=== PATIENT | female | born 1980 | race Caucasian/White ===

== ENCOUNTER 2017-08-05 17:16 | Emergency (ER) | payer OTHER ==
[2017-08-05] MEDS ORDERED: SODIUM CHLORIDE 1,000 ML IV STA (17:29)
[2017-08-05] MEDS ORDERED: ACETAMINOPHEN 325 MG TABLET (FP) PO ONE (17:29)
[2017-08-05] MEDS ORDERED: ACETAMINOPHEN 325 MG TABLET (FP) ONE (17:32)
[2017-08-05 17:34] VITALS: BP 139/95; PULSE 88; TEMP 98.7; BMI 28.1
--- NOTE | 2017-08-05 17:36 | PDOC ---
History of Present Illness - General History Source: Patient Exam Limitations: No Limitations <Vinicius Saucedo - Last Filed: 08/05/17 18:44> - History of Present Illness Initial Comments: 08/05/17 17:39 The patient is a 36 year old female, with no significant past medical history, who presents to the emergency department with right flank pain, dysuria, suprapubic pain, and chills today. The patient states her last period was 5 weeks ago and reports taking an at home test 2 days ago which was negative. She denies chest pain, shortness of breath, headache and dizziness. She denies fever, nausea, vomit, diarrhea and constipation. She denies frequency, urgency and hematuria. Allergies: NKDA Past surgical history: none reported Social history: Pt denies tobacco use. Admits to social alcohol consumption. PCP - Dr. Murray <Yael Sloan - Last Filed: 08/05/17 19:46> - General History Source: Patient Exam Limitations: No Limitations <Shruthi Gutierrez I - Last Filed: 08/05/17 23:02> - General Chief Complaint: Urinary Problem Stated Complaint: PAINFUL URINATION Time Seen by Provider: 08/05/17 17:20 Past History - Suicide/Smoking/Psychosocial Hx Smoking Status: No Smoking History: Never smoked Number of Cigarettes Smoked Daily: 0 Hx Alcohol Use: Yes (SOCIAL) Drug/Substance Use Hx: No Substance Use Type: None Hx Substance Use Treatment: No <Vinicius Saucedo - Last Filed: 08/05/17 18:44> <Yael Sloan - Last Filed: 08/05/17 19:46> <Shruthi Gutierrez I - Last Filed: 08/05/17 23:02> - Past Medical History Allergies/Adverse Reactions: Allergies Allergy/AdvReac Type Severity Reaction Status Date / Time No Known Allergies Allergy Verified 06/14/15 18:51 Home Medications: Ambulatory Orders Cefuroxime Axetil [Ceftin -] 250 mg PO BID #14 tablet 08/05/17 Phenazopyridine HCl [Pyridium] 100 mg PO TID #6 tablet 08/05/17 Phenazopyridine HCl [Pyridium] 200 mg PO TID PRN 08/05/17 Review of Systems - Review of Systems Able to Perform ROS?: Yes Comments:: 08/05/17 17:39 GENERAL/CONSTITUTIONAL: (+) chills. No fever. No weakness. HEAD, EYES, EARS, NOSE AND THROAT: No change in vision. No ear pain or discharge. No sore throat. CARDIOVASCULAR: No chest pain or shortness of breath. RESPIRATORY: No cough, wheezing, or hemoptysis. GASTROINTESTINAL: (+) suprapubic pain. No nausea, vomiting, diarrhea or constipation. GENITOURINARY: (+)dysuria and right flank pain. No frequency or hematuria. MUSCULOSKELETAL: No joint or muscle swelling or pain. No neck or back pain. SKIN: No rash NEUROLOGIC: No headache, vertigo, loss of consciousness, or change in strength/ sensation. ENDOCRINE: No increased thirst. No abnormal weight change. HEMATOLOGIC/LYMPHATIC: No anemia, easy bleeding, or history of blood clots. ALLERGIC/IMMUNOLOGIC: No hives or skin allergy. Is the patient limited Korean proficient: Yes <Yael Sloan - Last Filed: 08/05/17 19:46> *Physical Exam - Vital Signs Last Vital Signs Temp Pulse Resp BP Pulse Ox 98.7 F 88 15 139/95 98 08/05/17 17:17 08/05/17 17:17 08/05/17 17:17 08/05/17 17:17 08/05/17 17:17 <Vinicius Saucedo - Last Filed: 08/05/17 18:44> - Vital Signs Last Vital Signs Temp Pulse Resp BP Pulse Ox 98.7 F 88 15 139/95 98 08/05/17 17:17 08/05/17 17:17 08/05/17 17:17 08/05/17 17:17 08/05/17 17:17 - Physical Exam Comments: 08/05/17 17:40 GENERAL: Awake, alert, and fully oriented, in no acute distress HEAD: No signs of trauma EYES: PERRLA, EOMI, sclera anicteric, conjunctiva clear ENT: Auricles normal inspection, hearing grossly normal, nares patent, oropharynx clear without exudates. Moist mucosa NECK: Normal ROM, supple, no lymphadenopathy, JVD, or masses LUNGS: Breath sounds equal, clear to auscultation bilaterally. No wheezes, and no crackles HEART: Regular rate and rhythm, normal S1 and S2, no murmurs, rubs or gallops ABDOMEN: (+) suprapubic tenderness. Soft, normoactive bowel sounds. No guarding , no rebound. No masses MUSCULOSKELETAL: (+) right CVA tenderness. EXTREMITIES: Normal range of motion, no edema. No clubbing or cyanosis. No cords, erythema, or tenderness NEUROLOGICAL: Cranial nerves II-XII intact. Normal speech, normal gait. Sensation intact in upper and lower extremities. 5/5 motor strength in upper and lower extremities. No pronator drift. Finger to nose intact. Rapid alternations intact. SKIN: Warm, Dry, normal turgor, no rashes or lesions noted. <Yael Sloan - Last Filed: 08/05/17 19:46> - Vital Signs Last Vital Signs Temp Pulse Resp BP Pulse Ox 98.7 F 88 15 139/95 98 08/05/17 17:17 08/05/17 17:17 08/05/17 17:17 08/05/17 17:17 08/05/17 17:17 <Shruthi Gutierrez I - Last Filed: 08/05/17 23:02> ED Treatment Course - LABORATORY CBC & Chemistry Diagram: 08/05/17 17:40 08/05/17 17:40 <Vinicius Saucedo - Last Filed: 08/05/17 18:44> - LABORATORY CBC & Chemistry Diagram: 08/05/17 17:40 08/05/17 17:40 - RADIOLOGY Radiograph Interpretation: 08/05/17 19:46 EXAM: CT ABDOMEN AND PELVIS WITHOUT CONTRAST TECHNIQUE: Contiguous axial images acquired with reformat sagittal and coronal planes. REASON FOR EXAM: Abdominal pain right flank COMPARISON: None FINDINGS: Lower lung [place] are clear. Stomached distended with food debris. There are no gallstones identified. Liver, pancreas, spleen and adrenal glands are grossly unremarkable given the limitation of this non contrast exam. No renal stones are seen or evidence of obstructive uropathy. Abdominal aorta without AAA. There is no retroperitoneal hemorrhage The appendix is normal. Evaluation of the GI tract is limited without oral contrast. No evidence of bowel obstruction, ascites, abscess, free air or diverticulitis. Bladder and uterus grossly unremarkable. Subcutaneous soft tissue mass along the lower back at the L-5 and sacrum measures 4.2 x 8.2 x x 11 cm possibly desmoid tumor, fibromatosis, hypertrophic scar/keloid. Biopsy would confirm. Lumbar spine and bony pelvis are intact. IMPRESSION: Superificial subcutaneous soft tissue mass along the lower back as described above. No renal stones or evidence of obstructive uropathy. Appendix is normal. Ursula Watson D.O. 08/05/2017 19:42 EST <Yael Sloan - Last Filed: 08/05/17 19:46> - LABORATORY CBC & Chemistry Diagram: 08/05/17 17:40 08/05/17 17:40 - ADDITIONAL ORDERS Additional order review: Laboratory Results 08/05/17 08/05/17 17:40 17:30 Sodium 132 L Potassium 3.6 Chloride 103 Carbon Dioxide 23 Anion Gap 6 L BUN 12 D Creatinine 0.8 D Creat Clearance w eGFR > 60 Random Glucose 96 Calcium 9.6 Total Bilirubin 1.1 H D AST 26 D ALT 22 Alkaline Phosphatase 46 Total Protein 7.1 Albumin 4.6 D Urine Color Yellow Urine Appearance Clear Urine pH 5.5 D Ur Specific [place] 1.010 Urine Protein Negative Urine Glucose (UA) Negative Urine Ketones Negative Urine Blood Trace-intact H Urine Nitrite Negative Urine Bilirubin Negative Urine Urobilinogen 0.2 Urine RBC 0-2 Urine WBC 5-10 Ur Epithelial Cells 3-5 Urine Bacteria Few Urine HCG, Qual Negative 08/05/17 17:40 RBC 4.37 MCV 94.9 MCHC 33.8 RDW 12.1 MPV 8.1 Neutrophils % 67.4 D Lymphocytes % 24.3 D Monocytes % 5.2 Eosinophils % 1.5 Basophils % 1.6 - Medications Given in the ED: ED Medications Discontinued Medications Generic Name Dose Route Start Last Admin Trade Name Magdalenoq PRN Reason Stop Dose Admin Acetaminophen 650 mg 08/05/17 17:29 08/05/17 17:35 Tylenol - PO 08/05/17 17:30 650 mg ONCE ONE Administration Sodium Chloride 1,000 mls @ 1,000 mls/hr 08/05/17 17:29 08/05/17 17:40 Normal Saline - IV 08/05/17 18:28 1,000 mls/hr ASDIR STA Administration <Shruthi Gutierrez I - Last Filed: 08/05/17 23:02> Medical Decision Making - Medical Decision Making 08/05/17 17:34 A portion of this note was documented by scribe services under my direction. I have reviewed the details of the note, within reason, and agree with the documentation with the following case summary and management plan written by me. Patient treated in the ED. Nursing notes are reviewed and incorporated into the medical decision-making. Vital signs reviewed. Peripheral IV access obtained by the nurse, laboratory studies are drawn and sent, reviewed and interpreted by myself. Vital Signs Temp Pulse Resp BP Pulse Ox 98.7 F 88 15 139/95 98 08/05/17 17:17 08/05/17 17:17 08/05/17 17:17 08/05/17 17:17 08/05/17 17:17 36-year-old female with no past medical history presents to the emergency department for right flank pain and dysuria for 4 days. Patient has reported feeling chills but denies fevers. Denies sick contacts or recent travels. Denies coughing or vomiting or diarrhea. Patient was initially concerned that she may be as her last period was approximately 5 weeks ago. Patient had recently take a test 2 days ago but was negative. Denies vaginal bleeding. I suspect the patient may potentially have a kidney infection. We'll obtain labs , urinalysis and reassess. We'll obtain a urine test as well. 08/05/17 18:18 CBC, BMP 08/05/17 17:40 08/05/17 17:40 CMP Sodium 132 mmol/L (136-145) L 08/05/17 17:40 Potassium 3.6 mmol/L (3.5-5.1) 08/05/17 17:40 Chloride 103 mmol/L (98-107) 08/05/17 17:40 Carbon Dioxide 23 mmol/L (22-28) 08/05/17 17:40 Anion Gap 6 (8-16) L 08/05/17 17:40 BUN 12 mg/dl (7-18) D 08/05/17 17:40 Creatinine 0.8 mg/dl (0.6-1.3) D 08/05/17 17:40 Creat Clearance w eGFR > 60 (>60) 08/05/17 17:40 Random Glucose 96 mg/dl (74-106) 08/05/17 17:40 Calcium 9.6 mg/dl (8.4-10.2) 08/05/17 17:40 Total Bilirubin 1.1 mg/dl (0.2-1.0) H D 08/05/17 17:40 AST 26 U/L (10-42) D 08/05/17 17:40 ALT 22 U/L (10-40) 08/05/17 17:40 Alkaline Phosphatase 46 U/L (32-92) 08/05/17 17:40 Total Protein 7.1 g/dl (6.4-8.3) 08/05/17 17:40 Albumin 4.6 g/dl (3.5-5.0) D 08/05/17 17:40 Urine Test Results Urine Color Yellow 08/05/17 17:30 Urine Appearance Clear 08/05/17 17:30 Urine pH 5.5 (4.5-8) D 08/05/17 17:30 Ur Specific [place] 1.010 (1.005-1.025) 08/05/17 17:30 Urine Protein Negative (NEGATIVE) 08/05/17 17:30 Urine Glucose (UA) Negative (NEGATIVE) 08/05/17 17:30 Urine Ketones Negative (NEGATIVE) 08/05/17 17:30 Urine Blood Trace-intact (NEGATIVE) H 08/05/17 17:30 Urine Nitrite Negative (NEGATIVE) 08/05/17 17:30 Urine Bilirubin Negative (NEGATIVE) 08/05/17 17:30 Urine RBC 0-2 /hpf (0-3) 08/05/17 17:30 Urine WBC 5-10 (3-5) 08/05/17 17:30 Ur Epithelial Cells 3-5 /HPF 08/05/17 17:30 Urine Bacteria Few /hpf (NEGATIVE) 08/05/17 17:30 There is 1+ leuk esterase from the laboratory. Given the blood in the urine, will perform a spiral CT to r/o kidney stones. However, if the findings do not suggest kidney stones, will likely treat clinically as a kidney infection. 08/05/17 18:44 Case signed out to [facility] ED attending Dr. Hunter for further management and disposition. <Vinicius Saucedo - Last Filed: 08/05/17 18:44> *DC/Admit/Observation/Transfer <Vinicius Saucedo - Last Filed: 08/05/17 18:44> - Attestations Scribe Attestion: 08/05/17 17:41 Documentation prepared by Yael Sloan, acting as medical device engineer for Vinicius Saucedo MD, <Yael Sloan - Last Filed: 08/05/17 19:46> <Shruthi Gutierrez I - Last Filed: 08/05/17 23:02> Diagnosis at time of Disposition: Pyelonephritis - Discharge Dispostion Disposition: HOME Condition at time of disposition: Good - Prescriptions Prescriptions: Cefuroxime Axetil [Ceftin -] 250 mg PO BID #14 tablet Phenazopyridine HCl [Pyridium] 100 mg PO TID #6 tablet - Referrals Referrals: Suni Murray MD [Primary Care Provider] - - Patient Instructions Additional Instructions: Get your prescriptions filled at the pharmacy For the symptoms take Pyridium 1 tablet 3 times a day for 2 days this will turn her urine a bright orange so do not be upset by the color of your urine Take the antibiotic twice a day for 7 days. I am giving you a copy of your CAT scan it has an incidental finding that you need to follow-up with your primary care doctor of a soft tissue mass along her lower back area. Return to the emergency department immediately with ANY new, persistent or worsening symptoms. Continue any medications as previously prescribed by your physician. You should follow up with your primary doctor as soon as possible regarding today's emergency department visit. . Please make sure your doctor reviews the results of your emergency evaluation. Thank you for coming to the Emergency Department today for your care. It was a pleasure to see you today. Please note that your evaluation is INCOMPLETE until you follow-up with your doctor.
[2017-08-05 17:38] LABS: PH,URINE 5.5 (4.5-8); URINE APPEARANCE Clear; URINE BILIRUBIN Negative (NEGATIVE); URINE GLUCOSE (UA) Negative (NEGATIVE); URINE KETONE Negative (NEGATIVE); URINE NITRITE Negative (NEGATIVE); URINE PROTEIN Negative (NEGATIVE); URINE UROBILINOGEN 0.2 (0.2-1.0)
[2017-08-05 17:39] LABS: URINE BLOOD Trace-intact (NEGATIVE); URINE COLOR YELLOW; URINE LEUK ESTERASE 1+ (NEGATIVE)
[2017-08-05 17:57] LABS: BASOPHIL 1.6 % (0-2.0); EOSINOPHIL 1.5 % (0-4.5); MCH 32.1 pg (25.7-33.7); MCHC 33.8 g/dl (32.0-36.0); MEAN CELL VOLUME 94.9 fl (80-96); MEAN PLT VOLUME 8.1 fl (7.5-11.1); NEUTROPHILS 67.4 % (42.8-82.8); PLATELET COUNT 231 K/MM3 (134-434); RDW 12.1 % (11.6-15.6); WHITE BLOOD COUNT 8.2 K/mm3 (4.0-10.8)
[2017-08-05 18:04] LABS: URINE BACTERIA FEW /hpf (NEGATIVE); URINE RBC 0-2 /hpf (0-3)
[2017-08-05 18:06] LABS: ALBUMIN 4.6 g/dl (3.5-5.0); ALK PHOS 46 U/L (32-92); ANION GAP 6 (8-16); BILIRUBIN,TOTAL 1.1 mg/dl (0.2-1.0); CALCIUM 9.6 mg/dl (8.4-10.2); CO2 23 mmol/L (22-28); CREATININE 0.8 mg/dl (0.6-1.3); GLUCOSE,RANDOM 96 mg/dl (74-106); SGOT/AST 26 U/L (10-42); SGPT/ALT 22 U/L (10-40); TOT PROT 7.1 g/dl (6.4-8.3)
[2017-08-05] MEDS ORDERED: CEFTRIAXONE 1 GM in DEXTROSE 5%-WATER - 50 ML IVPB ONE (19:55)
--- NOTE | 2017-08-05 20:08 | PDOC ---
*Physical Exam - Vital Signs Last Vital Signs Temp Pulse Resp BP Pulse Ox 98.7 F 88 15 139/95 98 08/05/17 17:17 08/05/17 17:17 08/05/17 17:17 08/05/17 17:17 08/05/17 17:17 ED Treatment Course - LABORATORY CBC & Chemistry Diagram: 08/05/17 17:40 08/05/17 17:40 - ADDITIONAL ORDERS Additional order review: Laboratory Results 08/05/17 08/05/17 17:40 17:30 Sodium 132 L Potassium 3.6 Chloride 103 Carbon Dioxide 23 Anion Gap 6 L BUN 12 D Creatinine 0.8 D Creat Clearance w eGFR > 60 Random Glucose 96 Calcium 9.6 Total Bilirubin 1.1 H D AST 26 D ALT 22 Alkaline Phosphatase 46 Total Protein 7.1 Albumin 4.6 D Urine Color Yellow Urine Appearance Clear Urine pH 5.5 D Ur Specific [place] 1.010 Urine Protein Negative Urine Glucose (UA) Negative Urine Ketones Negative Urine Blood Trace-intact H Urine Nitrite Negative Urine Bilirubin Negative Urine Urobilinogen 0.2 Urine RBC 0-2 Urine WBC 5-10 Ur Epithelial Cells 3-5 Urine Bacteria Few Urine HCG, Qual Negative 08/05/17 17:40 RBC 4.37 MCV 94.9 MCHC 33.8 RDW 12.1 MPV 8.1 Neutrophils % 67.4 D Lymphocytes % 24.3 D Monocytes % 5.2 Eosinophils % 1.5 Basophils % 1.6 - Medications Given in the ED: ED Medications Discontinued Medications Generic Name Dose Route Start Last Admin Trade Name Freq PRN Reason Stop Dose Admin Acetaminophen 650 mg 08/05/17 17:29 08/05/17 17:35 Tylenol - PO 08/05/17 17:30 650 mg ONCE ONE Administration Sodium Chloride 1,000 mls @ 1,000 mls/hr 08/05/17 17:29 08/05/17 17:40 Normal Saline - IV 08/05/17 18:28 1,000 mls/hr ASDIR STA Administration Progress Note - Progress Note Progress Note: Initial Comments: 08/05/17 19:29 Care of this patient was transferred to [place] from Dr. Saucedo at 1900 hrs. Patient is a 36-year-old female who comes in complaining of urinary frequency dysuria and some flank pain. Patient is afebrile and has a normal CBC including normal white count and no left shift. Patient's urinalysis shows 0-2 red cells 5-10 white cells and a few bacteria. Patient has a CT pending to rule out kidney stone. CT was negative for any stone or obstructive uropathy. Patient will be treated for presumptive pyelonephritis with a dose of IV ceftriaxone and sent out with Ceftin An incidental finding on the CT was a superficial subcutaneous soft tissue mass along the lower back. Patient was given a copy of the CAT scan and told to take it to her primary care doctor to follow-up that some cutaneous or facial soft tissue mass. Patient discharged home prescriptions were sent to her pharmacy. *DC/Admit/Observation/Transfer Diagnosis at time of Disposition: Pyelonephritis - Discharge Dispostion Disposition: HOME Condition at time of disposition: Good Admit: No - Prescriptions Prescriptions: Cefuroxime Axetil [Ceftin -] 250 mg PO BID #14 tablet - Referrals Referrals: Suni Murray MD [Primary Care Provider] - - Patient Instructions Additional Instructions: Get your prescriptions filled at the pharmacy For the symptoms take Pyridium 1 tablet 3 times a day for 2 days this will turn her urine a bright orange so do not be upset by the color of your urine Take the antibiotic twice a day for 7 days. I am giving you a copy of your CAT scan it has an incidental finding that you need to follow-up with your primary care doctor of a soft tissue mass along her lower back area. Return to the emergency department immediately with ANY new, persistent or worsening symptoms. Continue any medications as previously prescribed by your physician. You should follow up with your primary doctor as soon as possible regarding today's emergency department visit. . Please make sure your doctor reviews the results of your emergency evaluation. Thank you for coming to the Emergency Department today for your care. It was a pleasure to see you today. Please note that your evaluation is INCOMPLETE until you follow-up with your doctor. - Post Discharge Activity
[2017-08-05] MEDS ORDERED: cefTRIAXone SODIUM 1 GM VIAL ONE (20:09)
[2017-08-05] MEDS ORDERED: PHENAZOPYRIDINE HCL 100 MG TABLET (FP) PO ONE (20:11)
[2017-08-05] MEDS ORDERED: PHENAZOPYRIDINE HCL 100 MG TABLET (FP) ONE (20:21)
== END 2017-08-05 20:54 | disposition home or self-care (01) ==
LOC: FER 17:16 → SUPCPDRO 17:16 → FER 20:54
PROC: 3E03329 Introduction of Other Anti-infective into Peripheral Vein, Percutaneous Approach (ICD-10-PCS; principal; 2017-08-05)
PROC: 3E0337Z Introduction of Electrolytic and Water Balance Substance into Peripheral Vein, Percutaneous Approach (ICD-10-PCS; 2017-08-05)
DX: N12 Tubulo-interstitial nephritis, not specified as acute or chronic (principal)
CPT/HCPCS: 36415; 74176; 80053; 81003; 81015; 84703; 85025; 87086; 87186; 99283-25

== ENCOUNTER 2018-06-18 14:13 | Emergency (ER) | payer OTHER ==
[2018-06-18 14:19] VITALS: BP 126/84; PULSE 81; TEMP 98.8; BMI 29.2
[2018-06-18] MEDS ORDERED: IBUPROFEN 600 MG TABLET (FP) PO ONE ×2 (14:28→14:30)
--- NOTE | 2018-06-18 14:55 | PDOC ---
History of Present Illness - General Chief Complaint: Pain Stated Complaint: RT HAND, RFA UP TO RT SHOULDER PAIN Time Seen by Provider: 06/18/18 14:28 History Source: Patient Exam Limitations: No Limitations (portuguese speaking, interpretors available in ER. ) - History of Present Illness Initial Comments: Pt, with no significant PMH, presents with R arm and hand pain. The pt states the pain started in January 2018 and is getting progressively worse. She states the pain hurts the most over the thumb and wrist of her R hand, but she feels "shooting pain" and numbness from her hand up into her shoulder. The pain is exacerbated by abducting at the right shoulder, and flexion of the R wrist. She has taken ibuprofen over the last few months for pain, with minimal relief, and has not been seen by her primary care physician. The pain is now interfering with her sleep. She denies any trauma to the joint (no falls, MVA, new exercise or lifting). She denies fevers/chills, nausea/vomiting, chest pain, SOB, urinary symptoms, diarrhea/constipation, or other joint pain. 06/18/18 15:44 Past History - Travel Traveled outside of the country in the last 30 days: No Close contact w/someone who was outside of country & ill: No - Past Medical History Allergies/Adverse Reactions: Allergies Allergy/AdvReac Type Severity Reaction Status Date / Time No Known Allergies Allergy Verified 06/18/18 14:15 Home Medications: Ambulatory Orders Methylprednisolone [Medrol Dose Be] 4 mg PO ASDIR #21 tablet 06/18/18 Cardiac Disorders: No COPD: No Diabetes: No Disorders: Yes (UTI) HTN: No Hypercholesterolemia: No - Surgical History Orthopedic Surgery: No - Suicide/Smoking/Psychosocial Hx Smoking Status: No Smoking History: Never smoked Have you smoked in the past 12 months: No Number of Cigarettes Smoked Daily: 0 Information on smoking cessation initiated: No Hx Alcohol Use: No Drug/Substance Use Hx: No Substance Use Type: None Hx Substance Use Treatment: No Review of Systems - Review of Systems Able to Perform ROS?: Yes (translation by staff) Is the patient limited Sudanese proficient: No Constitutional: Yes: Weight Stable. No: Chills, Diaphoresis, Fever, Loss of Appetite, Weakness HEENTM: No: Recent change in vision, Difficulty Swallowing Respiratory: No: Cough, Orthopnea, Shortness of Breath Cardiac (ROS): No: Chest Pain, Edema, Irregular Heart Rate, Lightheadedness, Palpitations, Syncope, Chest Tightness ABD/GI: No: Abdominal Distended, Constipated, Diarrhea, Nausea, Poor Appetite, Poor Fluid Intake, Vomiting : No: Burning, Dysuria, Frequency, Pain, Urgency Musculoskeletal: Yes: Joint Pain (R shoulder pain. Pain at wrist with flexion. Pain over R palmar thumb. ), Joint Swelling (R palmar thumb), Muscle Weakness ( difficulty gripping objects/opening jars). No: Back Pain, Neck Pain, Joint Stiffness Integumentary: No: Bruising, Erythema, Rash Neurological: Yes: Paresthesia ("shooting pain" and numbness down shoulder, posterior arm, and ulnar side of hand), Tingling, Weakness. No: Headache, Numbness, Unsteady Gait, Ataxia, Dizziness Psychiatric: No: Sleep Pattern Change, Change in Appetite Endocrine: No: Increased Urine, Change in Weight Hematologic/Lymphatic: No: Anemia, Blood Clots, Easy Bleeding All Other Systems: Reviewed and Negative *Physical Exam - Vital Signs Last Vital Signs Temp Pulse Resp BP Pulse Ox 98.8 F 81 18 126/84 100 06/18/18 14:13 06/18/18 14:13 06/18/18 14:13 06/18/18 14:13 06/18/18 14:13 - Physical Exam General Appearance: Yes: Nourished, Appropriately Dressed. No: Apparent Distress HEENT: positive: EOMI, Normal ENT Inspection, Normal Voice, Symmetrical, Pharynx Normal, Hearing Grossly Normal. negative: Scleral Icterus (R), Scleral Icterus (L) Neck: positive: Trachea midline, Normal Thyroid, Supple, Tender lateral (tender over R trapezius with spasm). negative: Tender, Rigid, Decreased range of motion, Lymphadenopathy (R), Lymphadenopathy (L), Rigidity, Tender midline Respiratory/Chest: positive: Chest Tender, Lungs Clear, Normal Breath Sounds. negative: Respiratory Distress, Accessory Muscle Use Cardiovascular: positive: Regular Rhythm, Regular Rate, S1, S2. negative: Edema , JVD, Murmur Vascular Pulses: Carotid (R): 4+, Carotid (L): 4+ (radial +4 b/l) Gastrointestinal/Abdominal: positive: Normal Bowel Sounds, Flat, Soft. negative : Tender, Organomegaly, Pulsatile Mass, Guarding, Rebound, Tenderness Lymphatic: negative: Adenopathy, Tenderness Musculoskeletal: positive: Decreased Range of Motion (tenderness with R shoulder abduction and R wrist flexion), Muscle Spasm (R trapezius). negative: Normal Inspection, CVA Tenderness, Vertebral Tenderness Extremity: positive: Normal Capillary Refill, Pelvis Stable. negative: Normal Inspection (swelling over thenar eminenince. Tenderness to palpation over lateral epicondyle of elbow. ), Normal Range of Motion, Tender, Coldness, Cyanosis, Erythema Integumentary: positive: Normal Color, Dry, Warm. negative: Rash, Ecchymosis, Bruising Neurologic: positive: career services assistant II-XII NML intact, Fully Oriented, Alert, Normal Mood/ Affect, Normal Response, Motor Strength 5/5, Sensory Deficit (decreased sensation over ulnar side of hand, forearm, and posterior arm. ). negative: Numbness ED Treatment Course - RADIOLOGY Radiology Studies Ordered: R shoulder x-ray: no acute fractures or dislocations seen (read by Dr. Webb) . 06/18/18 18:47 Medical Decision Making - Medical Decision Making Pt seen at bedside, also seen by Dr. Webb. Pt vitals stable, no acute distress. Pt provided 600 mg Ibuprofen for pain. Will send qual B-hcg for shoulder x-ray. Pt states she has pain over the radial aspect of the forearm and thenar eminence. Decreased sensation over ulnar distribution of hand and forearm. Spoke to Dr. Worrell, who states it will take some time before pt could get an appointment for MRI. Called Dr. Bateman (neurology) to ask about appointment so pt can receive outpatient MRI. Left message and awaiting call-back. 06/18/18 15:07 Pt taken for shoulder x-ray (urine test negative). Awaiting x-ray read. Pt sitting comfortably in room. 06/18/18 15:42 X-ray negative for fractures or dislocations. Pt discharged with medrol steroid pack and valium for muscle spasm. Will follow-up with orthopedics and neurology. Provided referrals and strict return precautions. Pt agreeable with plan. 06/18/18 18:49 *DC/Admit/Observation/Transfer Diagnosis at time of Disposition: Right shoulder strain Qualifiers: Encounter type: initial encounter Qualified Code(s): S46.911A - Strain of unspecified muscle, fascia and tendon at shoulder and upper arm level, right arm , initial encounter Ulnar nerve compression Qualifiers: Laterality: right Qualified Code(s): G56.21 - Lesion of ulnar nerve, right upper limb - Discharge Dispostion Disposition: HOME Condition at time of disposition: Stable - Prescriptions Prescriptions: Methylprednisolone [Medrol Dose Be] 4 mg PO ASDIR #21 tablet - Referrals Referrals: Suni Murray MD [Primary Care Provider] - Fred Bateman MD [Staff Physician] - López Holbrook MD [Staff Physician] - Derek Kathleen MD [Staff Physician] - - Patient Instructions Printed Discharge Instructions: DI for Shoulder Pain, DI for Wrist Pain Additional Instructions: You were seen in the ER today for shoulder and wrist pain. Please follow-up with a doctor in neurology (Dr. Holbrook or Dr. Bateman), Dr. Kathleen in orthopedics, and your primary care doctor (Dr. Cedillo). The steroid pack was sent to your pharmacy. Please come back to the ER if you have worsening pain in your shoulder , inability to feel or weakness in your arm or shoulder, or any other concerns. Print Language: RWANDAN - Post Discharge Activity
--- NOTE | 2018-06-18 18:55 | PDOC ---
Attending Attestation - Resident Resident Name: Disha Wilkerson - ED Attending Attestation I have performed the following: I have examined & evaluated the patient, The case was reviewed & discussed with the resident, I agree w/resident's findings & plan, Exceptions are as noted - HPI HPI: 06/18/18 18:52 37-year-old Welsh-speaking female who today complaining of right arm tingling and numbness. Patient states that her symptoms started 6 months prior to today. She describes gradual worsening of tingling and weakness initially in her hand. She does also have some pain radiating up her forearm also is complaining of intermittent shoulder crepitus and pain with movement. No history of any injury no history of neck pain or back pain no fevers chills no other current complaints no known history of carpal tunnel patient is right-hand dominant - Physicial Exam PE: 06/18/18 18:52 Patient is awake alert no distress. Head is atraumatic there is no midline cervical spine tenderness. Patient has right-sided trapezial muscle spasm and pain right shoulder is with full range of motion no deformity no effusion elbow is with full range of motion no deformity no effusion. Neurologically patient is ANO 3 cranial nerves II-12 are intact. She has 5 out of 5 upper extremity strength on flexion extension at the shoulder elbow and wrist. 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 The sensation is decreased in the ulnar nerve distribution and on the dorsal forearm. On the right. Negative Tinel's and Phalen's exam is normal. Heart is regular rate and rhythm no murmurs rubs or gallops. Lungs are clear bilaterally. 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 However due the fact the patient has some radial nerve distribution sensory changes a proximal lesion is considered such as cervical spasm or disc disease due to longevity of the patient's symptoms we'll do a trial of steroids recommend neurology and orthospine follow-up for possible outpatient MRI case discussed with Dr. Deepali Jerome who was see the patient for follow-up lesion given referrals for neurologist and Dr. Vaz orthopedic spine in addition to a Medrol Dosepak and Valium
== END 2018-06-18 16:40 | disposition home or self-care (01) ==
LOC: FER 14:13
DX: S46.911A Strain of unspecified muscle, fascia and tendon at shoulder and upper arm level, right arm, initial encounter (principal); X58.XXXA Exposure to other specified factors, initial encounter; Y93.89 Activity, other specified; Y92.9 Unspecified place or not applicable; G56.21 Lesion of ulnar nerve, right upper limb
CPT/HCPCS: 73030-TC-RT-FY; 84703; 99283-25